=== PATIENT | male | born 1980 | race Caucasian/White ===

== ENCOUNTER 2017-06-06 10:44 | Emergency (ER) | payer OTHER ==
[~2017-06-06] VITALS: Ht 177.8 cm; Wt 103.2 kg
[~2017-06-06 10:44] MED LIST: ALBUAER2 INH; ZPAC
[2017-06-06 10:45] VITALS: TEMP 37; Ht 177.8 cm; Wt 103.2 kg
[2017-06-06] MEDS ORDERED: IBUP-1428 PO (11:01)
--- NOTE | 2017-06-06 11:57 | EMERGENCY ROOM VISIT NOTE ---
ED Visit Note First contact with patient: 11:21 CHIEF COMPLAINT: knee pain HISTORY OF PRESENT ILLNESS: This 36-year-old male patient presents to the emergency department ambulatory after sustaining an injury to the left knee when he was working on a wall and kneeling for an extended period of time a few days ago. The patient denies any other injuries besides their knee. He denies any falls. The patient admits to swelling but denies bruising. There is pain over the anterior aspect. They rate the pain as sharp and 6/10. The patient states they are able to walk on it. No numbness or tingling. No previous injuries to this knee. No ankle, foot or hip pain. The patient denies fever. He denies any redness. REVIEW OF SYSTEMS: A 6 system review of systems was completed with positives and pertinent negatives listed in the HPI. ALLERGIES: No known drug allergies MEDICATIONS: Patient denies PMH: Patient denies SOCIAL HISTORY: The patient lives locally. He is a smoker PHYSICAL EXAM: Vital Signs: Reviewed Nurse's notes, vital signs stable. GENERAL : This is a 36-year-old male, no acute distress, but appears in pain, well- developed, well-nourished. MENTAL STATUS: Alert, oriented to person place and time, and cooperative. MUSCULOSKELETAL: The left knee is minimally swollen in the prepatellar space. There is no significant ecchymosis. There is minimal joint effusion present. The patient is tender over the patella. There is no joint line tenderness. The patella does not subluxate. Range of motion is decreased secondary to pain. Strength of the quads and hamstrings is 5/5. Elida's is negative. Kierra's and Anterior Drawer tests are painful but without obvious laxity. There is no obvious laxity with varus and valgus stressing. The foot and toes are warm and well-perfused. Dorsalis pedis pulse 2+. Sensation to pain and light touch is intact. Capillary refill less than 2 seconds. EMERGENCY DEPARTMENT COURSE: I examined the patient. X-rays of the left knee were reviewed by myself and read by radiology and reveal a well corticated fragment over the tibial tubercle. There is no prior x ray for comparison. This could represent bursitis or early infected bursitis as there is some overlying erythema. The patient was placed in a knee immobilizer under my direction and the position was satisfactory. The patient was instructed on the use of crutches. He will be placed on Keflex and given a prescription for pain medication. He should keep his appointment with orthopedics tomorrow as scheduled. He should return with worsening symptoms, redness, swelling, warmth, fever. The patient was discharged home in good condition. DISCHARGE INSTRUCTIONS: Ice and elevate knee for swelling and pain. Wear knee immobilizer when up and about. Ibuprofen 600 mg every 6 hrs for pain. Seneca 1 tablet every 6 hrs for additional pain relief. Do not drink or drive while taking Seneca. Take the Keflex as prescribed to treat potential infected bursitis. Keep your appointment with orthopedics tomorrow for definitive management and further evaluation. L KNEE 3 VIEWS CLINICAL HISTORY: left knee pain possible bursitis pain COMPARISON: None. DISCUSSION: The bones and joint spaces appear intact. There is no evidence of fracture, dislocation or bony disease. There is no evidence for soft tissue swelling. Small separate fragment anterior to the proximal tibial tubercle. This appears to be a nonacute process. Is well-corticated. All major joint spaces are well-preserved. IMPRESSION: No acute process. Problem List Medical Problems: (1) Asthma Status: Chronic (2) Hypertension Status: Chronic Current/Historical Medications Scheduled Cephalexin Monohydrate (Keflex), 500 MG PO QID Scheduled PRN Hydrocodone/Acetaminophen 5MG/325MG (Seneca 5MG/325MG), 1 TABLET PO Q6 PRN for Pain Ibuprofen (Motrin), 800 MG PO Q8H PRN for Pain or Fever Allergies Coded Allergies: No Known Allergies (Verified , 06/06/17) Vital Signs Date Time Temp Pulse Resp B/P (MAP) Pulse Ox O2 Delivery O2 Flow Rate FiO2 06/06/17 12:43 60 20 128/74 97 06/06/17 10:45 37.0 83 16 146/93 97 Room Air Departure Information Impression Primary Impression: Knee pain Dispostion Home / Self-Care Condition GOOD Prescriptions Hydrocodone/Acetaminophen 5MG/325MG (Seneca 5MG/325MG) Tab 1 TABLET PO Q6 Y for Pain, #12 TAB For Initial Treatment Prov: Tran Lewis PA-C 06/06/17 Cephalexin Monohydrate (Keflex) 500 Mg Cap 500 MG PO QID for 7 Days, #28 CAP Prov: Tran Lewis PA-C 06/06/17 Referrals No Doctor, Assigned (PCP) Carlos Torres P.A. Patient Instructions My [facility] Additional Instructions Ice and elevate knee for swelling and pain. Wear knee immobilizer when up and about. Ibuprofen 600 mg every 6 hrs for pain. Seneca 1 tablet every 6 hrs for additional pain relief. Do not drink or drive while taking Seneca. Take the Keflex as prescribed to treat potential infected bursitis. Keep your appointment with orthopedics tomorrow for definitive management and further evaluation. Problem Qualifiers Primary Impression: Knee pain Chronicity: acute Laterality: left Qualified Codes: M25.562 - Pain in left knee
--- NOTE | 2017-06-06 12:08 | DIAGNOSTIC IMAGING REPORT ---
L KNEE 3 VIEWS CLINICAL HISTORY: left knee pain possible bursitis pain COMPARISON: None. DISCUSSION: The bones and joint spaces appear intact. There is no evidence of fracture, dislocation or bony disease. There is no evidence for soft tissue swelling. Small separate fragment anterior to the proximal tibial tubercle. This appears to be a nonacute process. Is well-corticated. All major joint spaces are well-preserved. IMPRESSION: No acute process. The above report was generated using voice recognition software. It may contain grammatical, syntax or spelling errors. Electronically signed by: Emigdio Wilder M.D. 06/06/2017 12:07 PM Dictated Date/Time: 06/06/2017 12:06 PM
[2017-06-06] MEDS ORDERED: HYDR-5688 PO (12:30)
[2017-06-06] MEDS ORDERED: CEPH500C PO (12:30)
[2017-06-06 12:43] VITALS: BP 128/74; PULSE 60; O2SAT 97
== END 2017-06-06 12:45 | disposition home or self-care (01) ==
LOC: C.EDB 10:45 → C.EDD 12:45
DX: M25.562 Pain in left knee (principal); J45.909 Unspecified asthma, uncomplicated; I10 Essential (primary) hypertension; F17.210 Nicotine dependence, cigarettes, uncomplicated